=== PATIENT | male | born 1970 | race Caucasian/White ===

== ENCOUNTER 2022-10-20 11:00 | Emergency (ER) | payer OTHER, SELFPAY ==
[2022-10-20 12:45] LABS: SARS-CoV-2 NAA Rapid Test Not Detected (NotDetected)
[2022-10-20] MEDS ORDERED: Dexamethasone 10 MG/ML VIAL ONE (13:31)
== END 2022-10-20 13:34 | disposition home or self-care (01) ==
LOC: CSHERS 11:00
DX: B34.9 Viral infection, unspecified (principal); Z20.822 Contact with and (suspected) exposure to COVID-19; E78.5 Hyperlipidemia, unspecified
CPT/HCPCS: 87081; 87430; 99283; J1100

== ENCOUNTER 2024-01-28 08:28 | Outpatient (CLI) | payer OTHER ==
[2024-01-28] MEDS ORDERED: Magnevist 469MG/ML 20 ML VIAL ONE (14:48)
== END 2024-01-28 08:29 | disposition home or self-care (01) ==
LOC: CSHMRI 08:28
PROVIDERS: ATTEND Family Medicine
DX: R16.0 Hepatomegaly, not elsewhere classified (principal); K76.89 Other specified diseases of liver; K76.0 Fatty (change of) liver, not elsewhere classified
CPT/HCPCS: 74183; A9579